=== PATIENT | female | born 1995 | race African-American/Black ===

== ENCOUNTER 2018-07-14 10:51 | Emergency (ER) | payer BC ==
[2018-07-14 11:01] VITALS: BP 124/57; PULSE 63; TEMP 97; BMI 23.3
--- NOTE | 2018-07-14 11:10 | PDOC ---
History of Present Illness - General Chief Complaint: Injury Stated Complaint: LACERATION Time Seen by Provider: 07/14/18 11:08 History Source: Patient Exam Limitations: No Limitations - History of Present Illness Initial Comments: 07/14/18 12:38 Ms. Hernandez is a 22 yo F with no pertinent past medical history presenting with lacerations to the left forearm. She states that around 10 am she lost her balance on a set of stairs and on step #4 she fell with her left arm into a screen door with glass. She denies any other trauma, head trauma, or LOC. She denies picking glass out of her wounds. She denies intoxication during the event. She denies HI, SI, or ideas of self harm. Last tetanus shot unknown, but endorses being up to date on her vaccinations. Denies the following: fever, headaches, chest pain, SOB, abdominal pain, nausea, vomiting, dysuria, hematuria , diarrhea, melena, hematochezia, and leg swelling/pain. Pmhx: None Shx: None Allergies: NKDA Meds: None Social: Smokes a few cigarettes per week, drinks alcohol socially denies substance abuse. Past History - Past Medical History Allergies/Adverse Reactions: Allergies Allergy/AdvReac Type Severity Reaction Status Date / Time No Known Allergies Allergy Verified 07/14/18 11:01 Home Medications: Ambulatory Orders Levonorgestrel-Ethin Estradiol [Aviane] 1 each PO DAILY 07/14/18 COPD: No - Suicide/Smoking/Psychosocial Hx Smoking History: Never smoked Review of Systems - Review of Systems Able to Perform ROS?: Yes Constitutional: No: Chills, Diaphoresis, Fever HEENTM: No: Eye Pain, Recent change in vision, Ear Pain, Nose Pain, Throat Pain , Mouth Pain Respiratory: No: Cough, Shortness of Breath Cardiac (ROS): No: Chest Pain, Palpitations, Syncope, Chest Tightness ABD/GI: No: Constipated, Diarrhea, Nausea, Rectal Bleeding, Vomiting, Tarry Stools Musculoskeletal: No: Back Pain, Joint Pain, Muscle Pain Integumentary: Yes: Lesions (left forearm lesions secondary to sustained lacerations). No: Rash Neurological: No: Headache, Numbness, Paresthesia, Tremors, Weakness, Ataxia, Dizziness Psychiatric: No: Stressors Endocrine: No: Unexplained Weight Gain Hematologic/Lymphatic: No: Anemia *Physical Exam - Vital Signs Last Vital Signs Temp Pulse Resp BP Pulse Ox 97 F L 63 18 124/57 100 07/14/18 10:58 07/14/18 10:58 07/14/18 10:58 07/14/18 10:58 07/14/18 10:58 - Physical Exam General Appearance: Yes: Nourished, Appropriately Dressed HEENT: positive: EOMI, ELLA Neck: positive: Trachea midline. negative: Lymphadenopathy (R), Lymphadenopathy (L) Respiratory/Chest: positive: Lungs Clear, Normal Breath Sounds Cardiovascular: positive: Regular Rhythm, Regular Rate, S1, S2. negative: Systolic Murmur Vascular Pulses: Dorsalis-Pedis (R): 3+, Doralis-Pedis (L): 3+ Gastrointestinal/Abdominal: positive: Normal Bowel Sounds. negative: Tender Lymphatic: negative: Adenopathy Musculoskeletal: positive: Normal Inspection. negative: CVA Tenderness Extremity: positive: Normal Capillary Refill, Normal Inspection, Normal Range of Motion Integumentary: positive: Normal Color, Dry, Warm, Other (multiple lacerations measuring between 1cm-5cm on the left forearm secondary to arm going through glass window with subcuataneous fat showing. No exposed bone or muscle on inspection. 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0 cm Wound Explored: clean Wound's Depth, Shape: superficial, linear, flap Irrigated w/ Saline: Yes Betadine Prep: No Anesthesia: 1% Lidocaine w/ Epi Amount of Anesthetic (ccs): 10 Wound Debrided: minimal Wound Repaired With: Sutures Suture Size/Type: 4:0 Number of Sutures: 27 Layer Closure: Yes Deep Layer Suture Size/Type: 4:0 Number of Deep Layer Sutures: 6 Sterile Dressing Applied: Yes (bacitracin) Splint Applied: No Sling Applied: No Left Distal Arm Wound Length: to 2.5 cm Wound Explored: clean Wound's Depth, Shape: superficial, linear Irrigated w/ Saline: Yes Betadine Prep: No Anesthesia: 1% Lidocaine w/ Epi Amount of Anesthetic (ccs): 2 Wound Debrided: minimal Wound Repaired With: Sutures Suture Size/Type: 4:0 Number of Sutures: 3 Layer Closure: No Sterile Dressing Applied: Yes (bacitracin) Splint Applied: No Sling Applied: No Medical Decision Making - Medical Decision Making 07/14/18 23:15 22 yo F presenting with multiple lacerations. Initial vitals: Initial Vital Signs Temp Pulse Resp BP Pulse Ox 97 F L 63 18 124/57 100 07/14/18 10:58 07/14/18 10:58 07/14/18 10:58 07/14/18 10:58 07/14/18 10:58 Work up: Laboratory Tests 07/14/18 12:34 Urine HCG, Qual Negative xrays for the forearm, wrist, elbow, and shoulder were ordered to assess for retained glass shards. These were negative. Procedure: refer to procedure note. sutured the lacerations and applied bacitracin to the superficial abrasions. Told her to follow up with our ED for wound check in 48-72 hours and to keep the sutures in place for 7 days with return to our ED or PCP. She understands the plan and agrees to it. Dispo: Home 07/14/18 23:18 *DC/Admit/Observation/Transfer Diagnosis at time of Disposition: Laceration - Discharge Dispostion Disposition: HOME Condition at time of disposition: Good Decision to Admit order: No - Referrals Referrals: [facility] [place] [Provider Group] - Patient Instructions Additional Instructions: You have been seen in the emergency department for a laceration repair. Please come back to the emergency department in 48-72 hours for wound check and keep the sutures in for 7 days. In 7 days, please have them removed either by our emergency department, by a primary medical doctor of your choice, or the medical group we referred you for follow up care. Please return to the emergency department if you experience new concerning symptoms such as elbow pain, breaking of sutures, or worsening of symptoms. - Post Discharge Activity Forms/Work/School Notes: Back to Work
--- NOTE | 2018-07-14 11:11 | PDOC ---
Attending Attestation - Resident Resident Name: Greg Espinosa - HPI HPI: 07/14/18 12:23 Pt presents to the ED after falling and accidentally putting her forearm and elbow through a glass door with mutliple lacerations to the elbow and forearm. Denies other injuries. Ambulatory at the scene and in the ED. uncertain when last tetanus was. - Physicial Exam PE: 07/14/18 12:28 Multiple small and superficial abrasions on upper arm. + deep laceration to lateral elbow, + one large laceration to forearm and one small and superficial laceration to forearm. - Medical Decision Making 07/14/18 12:35 Pt presents to the ED with multiple lacerations to the forearm and elbow. Will wash out extensively and then check films to evaluate for foreign body. Will repair lacerations and give tetanus. Will discharge home.
[2018-07-14] MEDS ORDERED: DIPHTH,PERTUSS(ACELL),TET 0.5 ML DISP.SYRIN IM ONE (11:54)
[2018-07-14] MEDS ORDERED: LIDOCAINE 1%/EPI 1:100000 (20 ML MULTI DOSE VIAL) INF ONE (11:55)
[2018-07-14] MEDS ORDERED: LIDOCAINE 1%/EPI 1:100000 (20 ML MULTI DOSE VIAL) ONE (12:06)
[2018-07-14] MEDS ORDERED: BACITRACIN 15 GM TUBE TOPICAL OINTMENT TP ONE (17:05)
[2018-07-14] MEDS ORDERED: BACITRACIN 0.9 GM PACKET ONE (17:10)
== END 2018-07-14 17:41 | disposition home or self-care (01) ==
LOC: JER 10:51
PROC: 0JQH0ZZ Repair Left Lower Arm Subcutaneous Tissue and Fascia, Open Approach (ICD-10-PCS; principal; 2018-07-14)
PROC: 3E0234Z Introduction of Serum, Toxoid and Vaccine into Muscle, Percutaneous Approach (ICD-10-PCS; 2018-07-14)
DX: S51.822A Laceration with foreign body of left forearm, initial encounter (principal); W01.110A Fall on same level from slipping, tripping and stumbling with subsequent striking against sharp glass, initial encounter; Y93.89 Activity, other specified; Y92.89 Other specified places as the place of occurrence of the external cause; Y99.8 Other external cause status
CPT/HCPCS: 73030-TC-LT-FY; 73070-TC-LT-FY; 73090-TC-LT-FY; 73110-TC-LR-FY; 84703; 90715; 99282-25

== ENCOUNTER 2018-07-17 09:32 | Emergency (ER) | payer BC ==
[2018-07-17 09:36] VITALS: BP 119/65; PULSE 91; TEMP 98.5; BMI 23.3
--- NOTE | 2018-07-17 10:14 | PDOC ---
History of Present Illness - General Chief Complaint: Revisit,Wound Recheck Stated Complaint: REVIST, WOUND CHECK Time Seen by Provider: 07/17/18 10:02 History Source: Patient Exam Limitations: Clinical Condition - History of Present Illness Initial Comments: 07/17/18 10:15 Patient with no sig Past medical history presenting for 48 hours and check status post presenting 3 days ago with laceration to left upper arm and forearm by a glass door. Patient denies any erythema, drainage or opening to the wound site. Patient denies any fevers or chills. Denies any other symptoms Past History - Past Medical History Allergies/Adverse Reactions: Allergies Allergy/AdvReac Type Severity Reaction Status Date / Time No Known Allergies Allergy Verified 07/17/18 09:36 Home Medications: Ambulatory Orders Levonorgestrel-Ethin Estradiol [Aviane] 1 each PO DAILY 07/14/18 COPD: No - Suicide/Smoking/Psychosocial Hx Smoking History: Never smoked Review of Systems - Review of Systems Able to Perform ROS?: Yes Is the patient limited Khmer proficient: No Constitutional: No: Chills, Diaphoresis, Fever, Loss of Appetite, Malaise, Night Sweats, Weakness, Weight Stable, Unintentional Wgt. Loss, Unexplained wgt Loss, Other HEENTM: No: Eye Pain, Blurred Vision, Tearing, Recent change in vision, Double Vision, Cataracts, Ear Pain, Ocular Prothesis, Ear Discharge, Nose Pain, Nose Congestion, Tinnitus, Nose Bleeding, Hearing Loss, Throat Pain, Throat Swelling , Mouth Pain, Dental Problems, Difficulty Swallowing, Mouth Swelling, Other Respiratory: No: Cough, Orthopnea, Shortness of Breath, SOB with Exertion, SOB at Rest, Stridor, Wheezing, Productive cough, Hemoptysis, Other Cardiac (ROS): No: Chest Pain, Edema, Irregular Heart Rate, Lightheadedness, Palpitations, Syncope, Chest Tightness, Other ABD/GI: No: Abdominal Distended, Abd. Pain w/ defecation, Blood Streaked Bowels , Constipated, Diarrhea, Difficulty Swallowing, Nausea, Poor Appetite, Poor Fluid Intake, Rectal Bleeding, Vomiting, Indigestion, Abdominal cramping, Tarry Stools, Other Musculoskeletal: No: Back Pain, Gout, Joint Pain, Joint Swelling, Muscle Pain, Muscle Weakness, Neck Pain, Joint Stiffness, Other Integumentary: Yes: See HPI (left arm and forearm laceration) All Other Systems: Reviewed and Negative *Physical Exam - Vital Signs Last Vital Signs Temp Pulse Resp BP Pulse Ox 98.5 F 91 H 18 119/65 100 07/17/18 09:33 07/17/18 09:33 07/17/18 09:33 07/17/18 09:33 07/17/18 09:33 - Physical Exam Comments: 07/17/18 10:17 GENERAL: Well developed, well nourished. Awake and alert. No acute distress. HEENT: Normocephalic, atraumatic. PERRLA, EOMI. No conjunctival pallor. Sclera are non- icteric. Moist mucous membranes. Oropharynx is clear. NECK: Supple. Full ROM. No JVD. Carotid pulses 2+ and symmetric, without bruits. No thyromegaly. No lymphadenopathy. CARDIOVASCULAR: Regular rate and rhythm. No murmurs, rubs, or gallops. Distal pulses are 2+ and symmetric. PULMONARY: No evidence of respiratory distress. Lungs clear to auscultation bilaterally. No wheezing, rales or rhonchi. ABDOMINAL: Soft. Non-tender. Non-distended. No rebound or guarding. No organomegaly. Normoactive bowel sounds. MUSCULOSKELETAL Normal range of motion at all joints. No bony deformities or tenderness. No CVA tenderness. EXTREMITIES: No cyanosis. No clubbing. No edema. No calf tenderness. SKIN: Well-healing a centimeter laceration to lateral aspect of left distal arm with sutures in place. Another 6 cm laceration to proximal left forearm with sutures in place. 2 areas of superficial skin evulsion to lateral aspect of proximal left forearm. No erythema to wound site. No wound dehiscence or evidence of wound infection. NEUROLOGICAL: Alert, awake, appropriate. Cranial nerves 2-12 intact. No deficits to light touch and temperature in face, upper extremities and lower extremities. No motor deficits in the in face, upper extremities and lower extremities. Normoreflexic in the upper and lower extremities. Normal speech. Toes are down- going bilaterally. Gait is normal without ataxia. PSYCHIATRIC: Cooperative. Good eye contact. Appropriate mood and affect. General Appearance: Yes: Nourished, Appropriately Dressed. No: Apparent Distress Medical Decision Making - Medical Decision Making 07/17/18 10:18 Patient with no sig Past medical history presenting for wound check status post presenting 3 days ago with laceration to left upper arm and forearm. Exam shows well healing 2 lacerations to distal upper arm and proximal forearm with sutures in place with no evidence of wound infection. Patient educated on home wound care and advised to follow-up in 5 days for suture removal *DC/Admit/Observation/Transfer Diagnosis at time of Disposition: Laceration - Discharge Dispostion Disposition: HOME Condition at time of disposition: Stable Decision to Admit order: No - Referrals - Patient Instructions Printed Discharge Instructions: How to Care for a Surgical Wound - Post Discharge Activity
== END 2018-07-17 10:21 | disposition home or self-care (01) ==
LOC: JERFT 09:32
DX: Z48.817 Encounter for surgical aftercare following surgery on the skin and subcutaneous tissue (principal)
CPT/HCPCS: 99281-25

== ENCOUNTER 2018-07-24 08:39 | Emergency (ER) | payer BC ==
[2018-07-24 08:45] VITALS: BP 114/61; PULSE 69; TEMP 98; BMI 23.3
--- NOTE | 2018-07-24 09:16 | PDOC ---
Suture Removal/Wound Check HPI - History of Present Illness Chief Complaint: Suture/Staple Removal(Here) Stated Complaint: STITCHES REMOVAL Time Seen by Provider: 07/24/18 09:03 History Source: Yes: Patient Exam Limitations: Yes: No Limitations Treated at: [facility] Date of Last ED visit: 07/17/18 - Previous ED Treatment Type of procedure performed on last visit: Yes: Laceration Repair Past History - Past Medical History Allergies/Adverse Reactions: Allergies Allergy/AdvReac Type Severity Reaction Status Date / Time No Known Allergies Allergy Verified 07/24/18 08:45 Home Medications: Ambulatory Orders Levonorgestrel-Ethin Estradiol [Aviane] 1 each PO DAILY 07/14/18 COPD: No DVT: No - Immunization History Immunization Up to Date: Yes - Suicide/Smoking/Psychosocial Hx Smoking History: Never smoked Information on smoking cessation initiated: No Hx Alcohol Use: No Drug/Substance Use Hx: No Substance Use Type: None *Physical Exam - Vital Signs Last Vital Signs Temp Pulse Resp BP Pulse Ox 98 F 69 17 114/61 100 07/24/18 08:42 07/24/18 08:42 07/24/18 08:42 07/24/18 08:42 07/24/18 08:42 - Physical Exam General Appearance: Yes: Nourished, Appropriately Dressed HEENT: positive: EOMI, ELLA Cardiovascular: positive: Regular Rhythm, Regular Rate Extremity: positive: Normal Inspection, Normal Range of Motion Integumentary: positive: Normal Color, Dry, Warm, Other (left forearm with 8 simple interrupted sutures , well healed laceration clean dry , some areas of dehisence have occurred with scabbed areas. 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, Fully Oriented, Alert, Normal Mood/ Affect, Normal Response, Motor Strength 5/5 Procedures - Additional Procedures Progress: 07/24/18 09:18 sutures removed x8 Medical Decision Making - Medical Decision Making 07/24/18 09:19 cc: suture removal left forearm wound is clean and dry dc inst discussed in detail with patient *DC/Admit/Observation/Transfer Diagnosis at time of Disposition: Visit for suture removal - Discharge Dispostion Disposition: HOME Condition at time of disposition: Good - Referrals - Patient Instructions Printed Discharge Instructions: DI for Suture Removal Additional Instructions: apply vitamin E oil to the scars until completely healed then apply cocoa butter or you can continue the Vitamin E protect from the sunlight - Post Discharge Activity
== END 2018-07-24 09:30 | disposition home or self-care (01) ==
LOC: JERFT 08:39
DX: Z48.02 Encounter for removal of sutures (principal)
CPT/HCPCS: 99281-25

== ENCOUNTER 2024-02-28 03:58 | Day surgery (SDC) | payer OTHER ==
[2024-02-26 11:15] VITALS: BMI 28.1
[~2024-02-28 03:58] MED LIST: PHENAZOPYRIDINE HCL 100 MG TABLET (FP) PO ONE
[2024-02-28] MEDS ORDERED: PHENAZOPYRIDINE HCL 100 MG TABLET (FP) ONE (06:12)
[2024-02-28] MEDS ORDERED: ceFAZolin SODIUM 1 GM VIAL ONE (06:12)
[2024-02-28] MEDS: PHENAZOPYRIDINE HCL 100 MG TABLET (FP) PO ONE (06:49)
[2024-02-28] MEDS ORDERED: ROCURONIUM BROMIDE 50 MG/5 ML SYRINGE ONE ×2 (07:16→08:12)
[2024-02-28] MEDS ORDERED: FENTANYL CITRATE/PF 50 MCG/ML VIAL ONE ×5 (07:16→10:18)
[2024-02-28] MEDS ORDERED: MIDAZOLAM HCL 2 MG/2 ML SINGLE DOSE VIAL ONE (07:16)
[2024-02-28] MEDS ORDERED: PROPOFOL 20 ML ONE ×2 (07:16→08:13)
[2024-02-28] MEDS ORDERED: DEXAMETHASONE SOD PHOSPHATE 4 MG/1 ML VIAL ONE ×2 (07:17→08:07)
[2024-02-28] MEDS ORDERED: ONDANSETRON 4 MG/2 ML VIAL ONE ×2 (07:17→11:38)
[2024-02-28] MEDS ORDERED: LIDOCAINE HCL/PF 2% SDV 5ML VIAL ONE (07:17)
[2024-02-28] MEDS ORDERED: ACETAMINOPHEN INJECTION 100 ML IVPB ONE (07:20)
[2024-02-28] MEDS ORDERED: INDOCYANINE GREEN 25 MG/10 ML VIAL IVPUSH ONE (07:27)
[2024-02-28] MEDS ORDERED: BUPIVACAINE HCL/PF 0.5% (5MG/ML) 10 ML VIAL ONE (07:27)
[2024-02-28] MEDS ORDERED: LIDOCAINE 1%/EPI 1:100000 (20 ML MULTI DOSE VIAL) ONE (07:28)
[2024-02-28] MEDS ORDERED: TRANEXAMIC ACID 1000 MG/10 ML VIAL IVPUSH ONE (07:30)
[2024-02-28] MEDS: ceFAZolin SODIUM 1 GM VIAL IVPB ONE (08:10)
[2024-02-28] MEDS ORDERED: SUGAMMADEX SODIUM 200 MG/2 ML VIAL ONE (09:28)
[2024-02-28] MEDS ORDERED: KETOROLAC TROMETHAMINE 30 MG/1 ML VIAL ONE (09:37)
[2024-02-28] MEDS ORDERED: oxyCODONE HCL 5 MG TABLET PO PRN (10:05)
[2024-02-28] MEDS ORDERED: LACTATED RINGERS SOLUTION 1,000 ML IV SCH (10:15)
[2024-02-28] MEDS: CEFAZOLIN SODIUM 2 GM in DEXTROSE 5%-WATER - 100 ML IVPB ONE (10:45)
[2024-02-28 10:54] LABS: BASO % 0.4 % (0-2.0); EOS % 0.2 % (0-4.5); HEMATOCRIT 33.9 % (32.4-45.2); HEMOGLOBIN 11.1 GM/dL (10.7-15.3); LYMPH % 13.2 % (8-40); MCHC 32.7 g/dl (32.0-36.0); MEAN CELL VOLUME 88.7 fl (80-96); MEAN PLT VOLUME 7.9 fl (7.5-11.1); MONO % 1.4 % (3.8-10.2); NEUT % 84.8 % (42.8-82.8); PLATELET COUNT 267 10^3/uL (134-434); RBC 3.82 M/mm3 (3.60-5.2); RDW 14.4 % (11.6-15.6); WHITE BLOOD COUNT 7.7 K/mm3 (4.0-10.0)
[2024-02-28] MEDS: ONDANSETRON 4 MG/2 ML VIAL IVPUSH PRN (11:38)
[2024-02-28] MEDS ORDERED: ALBUTEROL SO4 0.083% IH SOL 2.5 MG/3 ML VIAL.NEB. NEB ONE (12:26)
[2024-02-28] MEDS: ALBUTEROL SO4 0.042% IH SOL 1.25 MG/3 ML VIAL.NEB NEB ONE (12:29)
[2024-02-28] MEDS: oxyCODONE HCL 5 MG TABLET PO PRN (13:05)
[2024-02-28] MEDS ORDERED: oxyCODONE HCL 10 MG SUSTAINED ACTING TABLET ONE (13:07)
[2024-02-28 13:18] VITALS: TEMP 97.7
[2024-02-28] MEDS: METOCLOPRAMIDE HCL INJECTION 10 MG/2 ML VIAL IVPUSH ONE (13:21)
[2024-02-28 13:28] VITALS: RESP 20
[2024-02-28 17:34] VITALS: BP 104/54; PULSE 87
== END 2024-02-28 17:25 | disposition home or self-care (01) ==
LOC: JASUSAT 03:58
PROVIDERS: ATTEND Obstetrics & Gynecology
PROC: 8E0W4CZ Robotic Assisted Procedure of Trunk Region, Percutaneous Endoscopic Approach (ICD-10-PCS; 2024-02-28)
PROC: 0UB24ZZ Excision of Bilateral Ovaries, Percutaneous Endoscopic Approach (ICD-10-PCS; principal; 2024-02-28 07:30)
DX: D27.0 Benign neoplasm of right ovary (principal); N83.292 Other ovarian cyst, left side
CPT/HCPCS: 36415; 81025; 85025; 88305-TC; 88307-TC; 94760; J0131